=== PATIENT | female | born 1940 | race Caucasian/White ===

== ENCOUNTER 2020-07-29 13:42 | Outpatient (CLI) | payer MEDICARE, SELFPAY | END 2020-07-29 13:43 | disposition home or self-care (01) | LOC: ANHCOVIDVC 13:42 | PROVIDERS: PCP Internal Medicine | DX: Z23 Encounter for immunization (principal) | CPT/HCPCS: 0001A; 91300 ==

== ENCOUNTER 2020-08-19 13:47 | Outpatient (CLI) | payer MEDICARE, SELFPAY | END 2020-08-19 13:48 | disposition home or self-care (01) | LOC: ANHCOVIDVC 13:47 | PROVIDERS: PCP Internal Medicine | DX: Z23 Encounter for immunization (principal) | CPT/HCPCS: 0002A; 91300 ==

== ENCOUNTER → 2023-01-25 12:23 | Outpatient (CLI) | payer MEDICARE, SELFPAY ==
--- NOTE | ~2023-01-25 | DEXA_ITS ---
Bone Density Report Name: PAMELA COKER Age: 82 Sex: Female Ethnicity: White Date of : 1940 Indication: postmenopausal; screening for osteoporosis; height loss; hysterectomy; Referring Provider: HOWIE GUERRERO Study: Bone densitometry was performed. Exam Date: January 25, 2023 Accession number: [id number] Bone Density: Region BMD T-score Z-score Classification AP Spine (L1, L4) 1.064 0.2 3.1 Normal Femoral Neck (Left) 0.616 -2.1 0.4 Osteopenia Total Hip (Left) 0.742 -1.6 0.7 Osteopenia Femoral Neck (Right) 0.747 -0.9 1.6 Normal Total Hip (Right) 0.853 -0.7 1.6 Normal Total Hip Mean 0.798 -1.2 1.2 Osteopenia World Health Organization criteria for BMD impression classify patients as: Normal (T-score at or above -1.0), Osteopenia (T-score between -1.0 and -2.5), or Osteoporosis (T-score at or below -2.5). 10-year Fracture Risk(1): Major Osteoporotic Fracture 16% Hip Fracture 5.0% Reported Risk Factors: [place] (), Neck BMD=0.616, BMI=26.6 (1) FRAX(R) Version 3.08. Fracture probability calculated for an untreated patient. Fracture probability may be lower if the patient has received treatment. Previous Exams: Region Exam Age BMD T-score BMD Change BMD Change Date g/cm2 vs Baseline vs Previous AP Spine(L1, L4) 01/25/2023 82 1.064 0.2 -0.096 0.043* 10/06/2015 75 1.021 -0.1 -0.139 0.018 07/29/2010 70 1.003 -0.3 -0.158 -0.010 07/22/2008 68 1.012 -0.2 -0.148 0.034* 07/18/2006 66 0.979 -0.5 -0.182 -0.182 07/01/2003 63 1.160 1.1 Total Hip(Left) 01/25/2023 82 0.742 -1.6 -0.140 -0.096* 10/06/2015 75 0.838 -0.9 -0.044 0.031* 07/29/2010 70 0.807 -1.1 -0.075 0.002 07/22/2008 68 0.805 -1.1 -0.077 -0.002 07/18/2006 66 0.807 -1.1 -0.075 -0.075 07/01/2003 63 0.882 -0.5 Total Hip(Right) 01/25/2023 82 0.853 -0.7 -0.081 -0.064* 10/06/2015 75 0.917 -0.2 -0.018 -0.033* 07/29/2010 70 0.950 0.1 0.016 0.063* 07/22/2008 68 0.887 -0.4 -0.047 -0.005 07/18/2006 66 0.893 -0.4 -0.042 -0.042 07/01/2003 63 0.935 -0.1 *Denotes significance at 95% confidence level, LSC for AP Spine = 0.022 g/cm2, LSC for Total Hip = 0.027 g/cm2 Clinical Information Provided by Patient:
== END ==
PROVIDERS: PCP Family Medicine; Visit Provider Family Medicine
DX: Z78.0 Asymptomatic menopausal state (principal); M85.88 Other specified disorders of bone density and structure, other site
CPT/HCPCS: 77080

== ENCOUNTER → 2023-06-13 07:13 | Outpatient (CLI) | payer MEDICARE, SELFPAY ==
--- NOTE | ~2023-06-13 | XR_ITS ---
Left Shoulder Technique: AP and axillary views were obtained. Clinical History: Pain Findings: No fracture or dislocation is seen. Osseous alignment is anatomic. There is moderate to adv anced right humeral joint degenerative change. There is minimal AC joint degenerative change. Soft ti ssues are unremarkable. 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 Reviewed, dictated and finalized at location . 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
== END ==
PROVIDERS: PCP Family Medicine; Visit Provider Family Medicine
DX: M19.012 Primary osteoarthritis, left shoulder (principal)
CPT/HCPCS: 73030